=== PATIENT | male | born 1950 | race Caucasian/White ===

== ENCOUNTER 2017-03-17 17:52 | Inpatient (IN) ==
[2017-03-17] MEDS ORDERED: Acetaminophen 325 MG TABLET PO PRN (20:08)
[2017-03-17] MEDS ORDERED: Ondansetron 4 MG/2 ML VIAL IVP PRN (20:08)
[2017-03-17] MEDS ORDERED: Naloxone 0.4 MG/ML INJ IVP PRN (20:08)
[2017-03-17] MEDS: Ipratropium/Albuterol Neb 3 ML IH SCH ×2 (21:07→23:22)
--- NOTE | 2017-03-17 21:11 | Internal Med History&Physical ---
Date of Encounter: 03/17/17 Time of Encounter: 20:20 Assessment and Plan (1) Sepsis Current visit: Yes Status: Acute Will admit the pt into Tele He does meet sepsis criteria with elevated WBC, tachycardia and Source of inf as Pneumonia / Bronchitis Will f/u on blood c drawn at [facility] ER check Lactic acid in AM trend on WBC Sent for sputum cx, Strep PNA, Legionella and Resp viral panel started him on empirical abx Rocephin + Azithromycin Duoneb and O2 Qualifiers: Qualified Code(s): A41.9 - Sepsis, unspecified organism (2) Pneumonia Current visit: Yes Status: Acute His symptoms consistent with PNA Unable to find CXr report in ER documents will get CXR here Mostly bacterial PNA started him on ABX Qualifiers: Qualified Code(s): J18.9 - Pneumonia, unspecified organism (3) Asthma exacerbation Current visit: Yes Status: Acute on Steroids Qualifiers: Qualified Code(s): J45.901 - Unspecified asthma with (acute) exacerbation (4) Benzocaine overdose of undetermined intent Current visit: Yes Status: Acute Denied any suicidal ideation Accidental overdose cont close monitoring of resp function was given Narcan in the ER.. now more alert, awake Qualifiers: Qualified Code(s): T41.3X4A - Poisoning by local anesthetics, undetermined, initial encounter (5) NEYDA (acute kidney injury) Current visit: Yes Status: Acute Hypovolemic with sepsis IV hydration d/c Lasix strict I & O Mantilla cath + (6) Acute and chronic respiratory failure with hypoxia Current visit: Yes Status: Acute Due to PNA Seems to be he was on 2 lit at home.. now requiring 4 lit o2 Does have GLORIA and use CPAP at [facility].. will resume (7) HTN (hypertension) Current visit: Yes Status: Acute hold BP meds since BP running low Qualifiers: Hypertension type: essential hypertension Qualified Code(s): I10 - Essential (primary) hypertension (8) Shortness of breath Current visit: Yes Status: Acute Due to asthma exacerbation however concerned for underline CHF too will get CXR get 2 D Echo unable to give Lasix due Sepsis (9) Chronic neck and back pain Current visit: Yes Status: Acute (10) Narcotic dependence Current visit: Yes Status: Acute on Morphine pump - need to change it very soon so need to call pain management in AM (11) Anxiety Current visit: Yes Status: Acute Internal Medicine - H&P: HPI Chief complaint: Shortness of breath / Ativan overdose Admitted From: Emergency Dept Plans for Post Hospital Care: Home History of present illness: Mr. Membreno is a 66 year old male severe back pain on morphine pump for pain management, HTN, Asthma, Chronic hypoxic resp failure and Anxiety who was recentsly started on Ativan 2mg tabs by PCP for Anxiety was taken to ED after he took 5 tabs of ativan for his SOB and Anxiety. Pt stated this morning he felt severe SOB / Nervous aorund 3 AM, then took 1 tabs of Ativan, did not help much, took another 2 tabs with out any relief , so he took 2 more and went to [facility] ED. Apparently pt was somnolent by the time he reached to ED, so he was given Norcan and send to our hospital for further care. Pt is now more alert, awake and O x 3 Denied any CP. still has some SOB and VALLEJO. Pt does c/o cough with greenish and yellowish expectoration. He also happened to have RLL Pneumonia and NEYDA. Past Med Surg Social Fam HX - Past Medical History Medical history: arthritis, asthma, COPD Psychiatric history: no psych history - Past Surgical History Surgical History: appendectomy, colectomy - Social History Smoking Status: Former smoker Alcohol use: none Drug use: none - Family History Mother Name: trevon emerson Age: 68 Cause of : cancer on operating table Hx Family Cancer: Yes (gall bladder) Father Name: rodrigue Age: 74 Living Status: Cause of : lung cancer Hx Family Cardiac Disorders: Yes (RI) Hx Family Respiratory Disorders: Yes (copd, emphysema) Hx Family Cancer: Yes (lung cancer) Internal Medicine - H&P: Meds 3 Allergy/AdvReac Type Severity Reaction Status Date / Time No Known Allergies Allergy Verified 03/17/17 20:20 All Systems PM: A 10-system review of systems was performed and is negative for pertinent findings except as documented above in the HPI. Review of systems: All the systems are reviewed everything is benign except the systems and symptoms I mentioned in the history of present illness - Constitutional Vitals: Temp Pulse Resp BP Pulse Ox 98.3 F 110 27 94/71 92 03/17/17 20:07 03/17/17 20:07 03/17/17 20:07 03/17/17 20:07 03/17/17 20:07 General appearance: Present: mild distress, A&O X 3, answers questions appropriately - Head Head exam: Present: atraumatic, normal inspection - Respiratory Respiratory exam: Present: respiratory distress (mild). Absent: rhonchi - Cardiovascular Cardiovascular exam: Present: RRR, +S1, +S2, tachycardia - GI/Abdominal GI/Abdominal exam: Present: normal bowel sounds, soft. Absent: rebound, rigid, tenderness - Extremities Exam Extremities exam: Absent: calf tenderness, pedal edema, tenderness - Back Exam Back exam: Absent: CVA tenderness (L), CVA tenderness (R) - Neurological Exam Neurological exam: Present: alert, oriented X3, no focal deficits - Psychiatric Psychiatric exam: Present: normal affect, normal mood - Skin Skin exam: Absent: rash
[2017-03-17 21:12] LABS: Hematocrit 51.7 % (37.5-50.1); Hemoglobin 15.7 g/dL (12.9-16.9); Mean Corpuscular HGB Conc 30.4 g/dL (31.6-35.5); Mean Corpuscular Hemoglobin 24.8 pg (28.0-33.3); Mean Corpuscular Volume 81.7 fL (83.0-100.0); Mean Platelet Volume 10.1 fL (9.4-12.4); Platelet Count 251 K/mcL (140-400); Red Blood Count 6.33 M/mcL (4.19-5.50); Red Cell Distribution Width 19.8 % (11.5-14.5)
[2017-03-17 21:13] LABS: Monocytes # 1.2 K/mcL (0.0-1.3)
[2017-03-17 21:31] LABS: Calcium 7.8 mg/dL (8.6-10.8); Lymphocytes # 2.9 K/mcL (0.6-4.6); Neutrophils # 16.3 K/mcL (1.6-8.9); Platelet Estimate Normal (Normal); Potassium 3.8 mEq/L (3.5-4.5)
[2017-03-17] MEDS: MethylPREDNISolone 40 MG/ML VIAL IVP SCH (21:38)
[2017-03-17] MEDS: 0.9 % Sodium Chloride 1,000 ML IVC SCH (21:39)
[2017-03-17] MEDS: Azithromycin 500 MG in D5% in Water 250 ML IVPB SCH (21:39)
[2017-03-17] MEDS: cefTRIAXone 1,000 MG in Water for inj. (sterile) 10 ML IVP SCH (21:40)
[2017-03-18] MEDS: MethylPREDNISolone 40 MG/ML VIAL IVP SCH ×4 (03:44→21:10)
[2017-03-18] MEDS: Ipratropium/Albuterol Neb 3 ML IH SCH ×6 (04:38→23:20)
[2017-03-18 05:09] LABS: Hematocrit 49.3 % (37.5-50.1); Hemoglobin 15.4 g/dL (12.9-16.9); Mean Corpuscular HGB Conc 31.2 g/dL (31.6-35.5); Mean Corpuscular Hemoglobin 25.4 pg (28.0-33.3); Mean Corpuscular Volume 81.2 fL (83.0-100.0); Mean Platelet Volume 9.6 fL (9.4-12.4); Platelet Count 230 K/mcL (140-400); Red Blood Count 6.07 M/mcL (4.19-5.50); Red Cell Distribution Width 20.1 % (11.5-14.5)
[2017-03-18 05:23] LABS: Calcium 7.8 mg/dL (8.6-10.8); Magnesium 1.1 mg/dL (1.6-2.6); Potassium 3.8 mEq/L (3.5-4.5)
[2017-03-18 05:39] LABS: Lymphocytes # 4.4 K/mcL (0.6-4.6); Monocytes # 1.7 K/mcL (0.0-1.3); Neutrophils # 15.7 K/mcL (1.6-8.9)
[2017-03-18 05:40] LABS: Smudge Cells Present (Not Present); Toxic Granulation Present (Not Present)
[2017-03-18 05:41] LABS: Large Platelets Present (Not Present); Platelet Estimate Normal (Normal); Reactive Lymphocytes Present (Not Present)
[2017-03-18] MEDS: *HR* Heparin 5,000 UNIT/ML VIAL SQ SCH ×2 (06:31→17:57)
--- NOTE | 2017-03-18 09:48 | Internal Med Progress Note ---
<Tawnya Quigley - Last Filed: 03/18/17 14:57> Date of Encounter: 03/18/17 Time of Encounter: 09:46 - Assessment and plan (1) Sepsis Current Visit: Yes Status: Acute Assessment and plan: severe sepsis vs septic shock; patient has not yet had a fluid bolus to see if his pressure is fluid responsive -total of 3 L fluid bolus -continue maintenance IVF -Rocephin, Azithromycin, and Vancomycin -Solu-Medrol - Strict I's and O's -Check labs and replace electrolytes as needed -Echocardiogram pending for shortness of breath -Respiratory infection panel pending - blood cultures pending -lactate 3.9 -> 5.6 -bipap prn Qualifiers: Sepsis type: sepsis due to unspecified organism Qualified Code(s): A41.9 - Sepsis, unspecified organism (2) Lactic acidosis Current Visit: Yes Status: Acute (3) Acute and chronic respiratory failure with hypoxia Current Visit: Yes Status: Acute Assessment and plan: Currently satting 94% on 4 L nasal cannula, normally uses 2 L at night with his BiPAP (4) Pneumonia Current Visit: Yes Status: Acute Qualifiers: Pneumonia type: due to unspecified organism Laterality: left Lung location: lower lobe of lung Qualified Code(s): J18.1 - Lobar pneumonia, unspecified organism (5) Asthma exacerbation Current Visit: Yes Status: Acute Qualifiers: Asthma severity: unspecified severity Asthma persistence: unspecified Qualified Code(s): J45.901 - Unspecified asthma with (acute) exacerbation (6) Anxiety Current Visit: Yes Status: Acute (7) Chronic neck and back pain Current Visit: Yes Status: Acute (8) Narcotic dependence Current Visit: Yes Status: Acute Assessment and plan: intrathecal morphine pump from pain management Has missed several visits to have the morphine refilled pain management consulted (9) HTN (hypertension) Current Visit: Yes Status: Acute Assessment and plan: Currently hypotensive due to severe sepsis/septic shock Qualifiers: Hypertension type: essential hypertension Qualified Code(s): I10 - Essential (primary) hypertension - Subjective Interval history: Patient states he is feeling much better this morning. He denies shortness of breath; however, he is currently on 4 L of oxygen via nasal cannula and he normally only uses 2 L at night with his BiPAP machine. - Constitutional Vitals: Temp Pulse Resp BP Pulse Ox 98.5 F 98 16 85/64 94 03/18/17 07:25 03/18/17 07:25 03/18/17 07:45 03/18/17 07:25 03/18/17 07:45 General appearance: Present: mild distress, A&O X 3, answers questions appropriately - Head Head exam: Present: atraumatic, normocephalic - Eye Eye exam: Present: PERRL, conjuntiva pink, sclera anicteric Pupils: Present: PERRL - Neck Neck exam general surgery: Present: supple, trachea midline - Respiratory Respiratory exam: Absent: respiratory distress, rhonchi, wheezes Additional comments: Coarse lung sounds bilateral bases - Cardiovascular Cardiovascular exam: Present: RRR, +S1, +S2. Absent: diastolic murmur, gallop, rubs, systolic murmur - GI/Abdominal GI/Abdominal exam: Present: normal bowel sounds, soft, no peritoneal signs. Absent: distended, tenderness - Extremities Exam Extremities exam: Present: warm. Absent: pedal edema, tenderness Additional comments: posterior tibial pulses palpable and symmetric - Neurological Exam Neurological exam: Present: alert. Absent: facial droop, speech deficit - Skin Skin exam: Present: dry, intact Internal Medicine: Result - Labs CBC & Chem 7: 03/18/17 04:54 03/18/17 04:54 Labs: Short CBC 03/17/17 03/18/17 Range/Units 20:50 04:54 WBC 20.4 H 21.8 H (4.3-11.1) K/mcL Hgb 15.7 15.4 (12.9-16.9) g/dL Hct 51.7 H 49.3 (37.5-50.1) % Plt Count 251 230 (140-400) K/mcL Neutrophils # 16.3 H 15.7 H (1.6-8.9) K/mcL BMP 03/17/17 03/18/17 20:50 04:54 Sodium 137 138 Potassium 3.8 3.8 Chloride 101 103 Carbon Dioxide 21 22 BUN 33 H 37 H Creatinine 2.82 H 2.11 H Glucose 90 117 H Calcium 7.8 L 7.8 L Cardiac Enzymes 03/17/17 Range/Units 20:50 Troponin I 0.01 (0-0.03) ng/mL - Impressions Impressions Chest X-Ray 03/17/17 20:31 IMPRESSION: On this single lordotic view of the chest, there is no definite focal consolidation. The left hemidiaphragm is not distinct, and a repeat evaluation may be considered if there is ongoing concern for disease in the left lower lung. D/ / Chon Yoder / Chon Yoder Interpreting Provider: Chon Yoder Consult Discharge Plan - Plan Referrals: Michael Lopes DO [Primary Care Provider] - 04/10/17 10:45 am (OFFICE WILL CALL PATIENT AT HOME WITH AN EARLIER APPOINTMENT) <Jaun Diego Olvera - Last Filed: 03/18/17 18:19> Date of Encounter: 03/18/17 - Assessment and plan (1) Acute and chronic respiratory failure with hypoxia Current Visit: Yes Status: Acute (2) Sepsis Current Visit: Yes Status: Acute Qualifiers: Sepsis type: sepsis due to unspecified organism Qualified Code(s): A41.9 - Sepsis, unspecified organism (3) HTN (hypertension) Current Visit: Yes Status: Acute Qualifiers: Hypertension type: essential hypertension Qualified Code(s): I10 - Essential (primary) hypertension (4) Pneumonia Current Visit: Yes Status: Suspected Qualifiers: Pneumonia type: due to Pneumococcus Laterality: left Lung location: lower lobe of lung Qualified Code(s): J13 - Pneumonia due to Streptococcus pneumoniae (5) Anxiety Current Visit: Yes Status: Acute (6) Chronic neck and back pain Current Visit: Yes Status: Acute (7) Benzodiazepine (tranquilizer) overdose Current Visit: Yes Status: Acute Qualifiers: Encounter type: initial encounter Injury intent: accidental or unintentional Qualified Code(s): T42.4X1A - Poisoning by benzodiazepines, accidental (unintentional), initial encounter - Constitutional Vitals: Temp Pulse Resp BP Pulse Ox 97.6 F 110 18 103/57 90 03/18/17 15:34 03/18/17 15:34 03/18/17 15:34 03/18/17 15:34 03/18/17 15:34 Internal Medicine: Result - Labs CBC & Chem 7: 03/18/17 04:54 03/18/17 04:54 Labs: Short CBC 03/17/17 03/18/17 Range/Units 20:50 04:54 WBC 20.4 H 21.8 H (4.3-11.1) K/mcL Hgb 15.7 15.4 (12.9-16.9) g/dL Hct 51.7 H 49.3 (37.5-50.1) % Plt Count 251 230 (140-400) K/mcL Neutrophils # 16.3 H 15.7 H (1.6-8.9) K/mcL BMP 03/17/17 03/18/17 20:50 04:54 Sodium 137 138 Potassium 3.8 3.8 Chloride 101 103 Carbon Dioxide 21 22 BUN 33 H 37 H Creatinine 2.82 H 2.11 H Glucose 90 117 H Calcium 7.8 L 7.8 L Cardiac Enzymes 03/17/17 Range/Units 20:50 Troponin I 0.01 (0-0.03) ng/mL - Impressions Impressions Chest X-Ray 03/17/17 20:31 IMPRESSION: On this single lordotic view of the chest, there is no definite focal consolidation. The left hemidiaphragm is not distinct, and a repeat evaluation may be considered if there is ongoing concern for disease in the left lower lung. D/ / Chon Yoder / Chon Yoder Interpreting Provider: Chon Yoder Echocardiogram 03/18/17 20:48 Impressions: LVEF 50-55%. Normal LV chamber size, wall thickness and function. Indeterminate diastolic function. Normal right ventricular structure and function. No significant valvular dysfunction. No evidence of pulmonary hypertension identified. Left Ventricular Wall Motion: Rest Echo Findings All wall segments showed normal motion. Findings: Study Quality * Technically adequate exam. ECG Findings * Normal sinus rhythm. Left Ventricle * LVEF 50-55%. * Normal LV chamber size, wall thickness and function. * Indeterminate diastolic function. Right Ventricle * Normal right ventricular structure and function. Left Atrium * Mildly dilated left atrium. Right Atrium * Normal right atrial size. Interatrial Septum * No evidence of PFO by color Doppler. Aortic Valve * Aortic valve not well visualized. * No aortic regurgitation. * No aortic stenosis. Mitral Valve * Normal mitral valve structure and function. * No mitral regurgitation. * No mitral stenosis. Tricuspid Valve * Normal tricuspid valve structure and function. * Trace tricuspid regurgitation. * No evidence of pulmonary hypertension. Pulmonic Valve * Pulmonic valve not well visualized. Aorta * Normally sized aortic root. Pericardium * The pericardium appears normal. IVC * Normal IVC dimensions and inspiratory collapse. Pulmonary Artery * Normal visualized portions of the main pulmonary artery. - Attending Attestation I examined this patient and my medical decision-making was reviewed with the Resident Physician on 03/18/17. I agree with the documented findings, disposition and treatment plan as described except to the extent set forth below. Mr Membreno is currently admitted with sepsis. Source appears to be lungs. He remains moderate to high risk due to potential for worsening clinical and respiratory status. Mr Membreno was hypotensive this AM but responded to fluid challenge. He had improvement in respiratory status on bipap. His heart rate has decreased. No fever or chills at this time. and son at bedside. Exam Alert. Mild respiratory distress Heart reg and tachy Mucus membranes dry Lungs with rhonchi bilaterally. Abd soft and nontender I/P 1. Sepsis - most likely pulmonary source 2. CHF - acute on chronic diastolic 3. Resp failure Further diagnoses and plan as above.
[2017-03-18] MEDS ORDERED: 0.9 % Sodium Chloride 1,000 ML IVC ONE (09:56)
[2017-03-18 10:35] LABS: VBG Ionized Calcium 0.95 mmol/L (1.15-1.35)
[2017-03-18] MEDS ORDERED: 0.9 % Sodium Chloride 1,000 ML IVC SCH (11:30)
[2017-03-18] MEDS ORDERED: Vancomycin 1,750 MG in D5% in Water 250 ML IVPB SCH (12:00)
[2017-03-18] MEDS ORDERED: Calcium Gluconate 1,000 MG in D5% in Water 100 ML IVPB ONE (13:53)
[2017-03-18] MEDS ORDERED: *HR* OxyCODONE/APAP 10/325 TABLET PO PRN (14:53)
[2017-03-18] MEDS: 0.9 % Sodium Chloride 1,000 ML IVC SCH (15:28)
[2017-03-18] MEDS ORDERED: Potassium Phosphate 44 MEQ in 0.9 % Sodium Chloride 250 ML IVPB PRN (15:34)
[2017-03-18] MEDS: Vancomycin 1,750 MG in D5% in Water 500 ML IVPB SCH (15:34)
[2017-03-18 16:32] LABS: Adenovirus Not Detected (Not Detect); Bordetella Pertussis Not Detected (Not Detect); Chlamydophila pneumoniae Not Detected (Not Detect); Coronavirus 229E Not Detected (Not Detect); Coronavirus HKU1 Not Detected (Not Detect); Coronavirus NL63 Not Detected (Not Detect); Coronavirus OC43 Not Detected (Not Detect); Human Metapneumovirus Not Detected (Not Detect); Human Rhinovirus/Enterovirus Not Detected (Not Detect); Influenza A Subtype 2009 H1 Not Detected (Not Detect); Influenza A Untypeable Not Detected (Not Detect); Influenza B Not Detected (Not Detect); Mycoplasma pneumoniae Not Detected (Not Detect); Parainfluenza Virus 1 Not Detected (Not Detect); Parainfluenza Virus 2 Not Detected (Not Detect); Parainfluenza Virus 3 Not Detected (Not Detect); Parainfluenza Virus 4 Not Detected (Not Detect); Respiratory Syncytial Virus Not Detected (Not Detect)
[2017-03-18] MEDS ORDERED: Furosemide 40 MG/4 ML VIAL IVP ONE (17:00)
[2017-03-18] MEDS: Budesonide/Formoterol 160/4.5 MDI IH SCH (19:46)
[2017-03-18] MEDS: cefTRIAXone 1,000 MG in Water for inj. (sterile) 10 ML IVP SCH (21:10)
[2017-03-18] MEDS: traZODone 50 MG TABLET PO SCH (21:10)
[2017-03-18] MEDS: Azithromycin 500 MG in D5% in Water 250 ML IVPB SCH (21:10)
[2017-03-18 23:01] LABS: VBG HCO3 25 mEq/L (21-27); VBG Ionized Calcium 1.07 mmol/L (1.15-1.35); VBG PCO2 44 mmHg (41-51); VBG PH 7.37 pH Units (7.32-7.42); VBG PO2 127 mmHg (25-50)
[2017-03-19] MEDS: MethylPREDNISolone 40 MG/ML VIAL IVP SCH ×3 (03:04→20:48)
[2017-03-19] MEDS: Ipratropium/Albuterol Neb 3 ML IH SCH ×6 (03:53→22:40)
[2017-03-19] MEDS: 0.9 % Sodium Chloride 1,000 ML IVC SCH ×2 (03:57→13:19)
[2017-03-19 04:42] LABS: Hematocrit 45.5 % (37.5-50.1); Hemoglobin 13.9 g/dL (12.9-16.9); Mean Corpuscular HGB Conc 30.5 g/dL (31.6-35.5); Mean Corpuscular Hemoglobin 24.7 pg (28.0-33.3); Mean Corpuscular Volume 80.8 fL (83.0-100.0); Mean Platelet Volume 10.1 fL (9.4-12.4); Platelet Count 227 K/mcL (140-400); Red Blood Count 5.63 M/mcL (4.19-5.50); Red Cell Distribution Width 19.6 % (11.5-14.5)
[2017-03-19 04:50] LABS: Blood Urea Nitrogen 38 mg/dL (8-26); Calcium 8.5 mg/dL (8.6-10.8); Carbon Dioxide 25 mEq/L (19-29); Chloride 103 mEq/L (98-109); Glucose 136 mg/dL (70-99); Osmolality,Calculated 293 (280-300); Phosphorous 1.8 mg/dL (2.3-4.7); Potassium 3.6 mEq/L (3.5-4.5); Sodium 136 mEq/L (136-145)
[2017-03-19 05:10] LABS: Neutrophils # 12.5 K/mcL (1.6-8.9); Platelet Estimate Normal (Normal)
[2017-03-19 05:13] LABS: BUN/Creatinine Ratio 33 (6-26); Magnesium 2.1 mg/dL (1.6-2.6); eGFR For African Americans > 60 (> 60); eGFR For Non-African Americans > 60 (> 60)
[2017-03-19] MEDS: *HR* Heparin 5,000 UNIT/ML VIAL SQ SCH ×2 (05:50→16:58)
[2017-03-19] MEDS ORDERED: Furosemide 40 MG/4 ML VIAL IVP ONE (06:33)
[2017-03-19] MEDS: FLUoxetine 20 MG CAPSULE PO SCH (07:58)
[2017-03-19] MEDS: Budesonide/Formoterol 160/4.5 MDI IH SCH ×2 (08:28→20:13)
[2017-03-19] MEDS: Tiotropium 18 MCG inhalation IH SCH (08:29)
--- NOTE | 2017-03-19 09:10 | Internal Med Progress Note ---
<Tawnya Quigley - Last Filed: 03/19/17 12:47> Date of Encounter: 03/19/17 Time of Encounter: 09:08 - Assessment and plan (1) Sepsis Current Visit: Yes Status: Acute Assessment and plan: severe sepsis - lactate 3.9 - 5.6 - 2.3 - 1.6 -Rocephin, Azithromycin, and Vancomycin -Solu-Medrol - Strict I's and O's -Electrolyte protocol -bipap prn and at night - Blood cultures pending - Respiratory infection panel negative - Echocardiogram: EF 50-55%. Normal LV chamber size, wall thickness and function. Indeterminate diastolic function. Normal right ventricular structure and function. No significant valvular dysfunction. No evidence of pulmonary hypertension. Qualifiers: Sepsis type: sepsis due to unspecified organism Qualified Code(s): A41.9 - Sepsis, unspecified organism (2) Acute and chronic respiratory failure with hypoxia Current Visit: Yes Status: Acute (3) Pneumonia Current Visit: Yes Status: Suspected Qualifiers: Pneumonia type: due to Pneumococcus Laterality: left Lung location: lower lobe of lung Qualified Code(s): J13 - Pneumonia due to Streptococcus pneumoniae (4) Asthma exacerbation Current Visit: Yes Status: Acute Qualifiers: Asthma severity: unspecified severity Asthma persistence: unspecified Qualified Code(s): J45.901 - Unspecified asthma with (acute) exacerbation (5) Anxiety Current Visit: Yes Status: Acute Assessment and plan: Patient presented to [facility] after taking 5 2 mg Ativan due to anxiety associated with shortness of breath (6) Chronic neck and back pain Current Visit: Yes Status: Acute (7) Narcotic dependence Current Visit: Yes Status: Acute Assessment and plan: intrathecal morphine pump from pain management Has missed several visits to have the morphine refilled pain management consulted (8) HTN (hypertension) Current Visit: Yes Status: Acute Assessment and plan: Blood pressure has been low normal due to severe sepsis Lasix 1 time doses as needed Continue to monitor closely Plan to discontinue maintenance IV fluids at noon today and watch blood pressure (patient is on a diet) Qualifiers: Hypertension type: essential hypertension Qualified Code(s): I10 - Essential (primary) hypertension (9) Lactic acidosis Current Visit: Yes Status: Resolved Assessment and plan: Resolved - Subjective Interval history: Patient states that he feels better. He is sitting up in the chair. - Constitutional Vitals: Temp Pulse Resp BP Pulse Ox 98.1 F 93 18 111/70 96 03/19/17 07:20 03/19/17 07:20 03/19/17 07:20 03/19/17 07:20 03/19/17 07:20 General appearance: Present: A&O X 3, answers questions appropriately - Head Head exam: Present: atraumatic, normocephalic - Eye Eye exam: Present: PERRL, conjuntiva pink, sclera anicteric Pupils: Present: PERRL - Neck Neck exam general surgery: Present: supple, trachea midline. Absent: lymphadenopathy - Respiratory Respiratory exam: Present: CTAB. Absent: accessory muscle use, rales, rhonchi, wheezes - Cardiovascular Cardiovascular exam: Present: RRR, +S1, +S2. Absent: diastolic murmur, gallop, rubs, systolic murmur - GI/Abdominal GI/Abdominal exam: Present: normal bowel sounds, soft, no peritoneal signs. Absent: distended, tenderness - Extremities Exam Extremities exam: Present: tenderness (mild), warm. Absent: pedal edema Additional comments: Dorsalis pedis pulses palpable and symmetric - Neurological Exam Neurological exam: Present: CN II-XII intact, oriented X3, no focal deficits. Absent: pronater drift, facial droop, speech deficit - Skin Skin exam: Present: dry, intact Internal Medicine: Result - Labs CBC & Chem 7: 03/19/17 04:30 03/19/17 04:30 Labs: Short CBC 03/19/17 Range/Units 04:30 WBC 16.5 H (4.3-11.1) K/mcL Hgb 13.9 D (12.9-16.9) g/dL Hct 45.5 (37.5-50.1) % Plt Count 227 (140-400) K/mcL Neutrophils # 12.5 H (1.6-8.9) K/mcL BMP 03/19/17 04:30 Sodium 136 Potassium 3.6 Chloride 103 Carbon Dioxide 25 BUN 38 H Creatinine 1.15 Glucose 136 H Calcium 8.5 L - Impressions Impressions Echocardiogram 03/18/17 20:48 Impressions: LVEF 50-55%. Normal LV chamber size, wall thickness and function. Indeterminate diastolic function. Normal right ventricular structure and function. No significant valvular dysfunction. No evidence of pulmonary hypertension identified. Left Ventricular Wall Motion: Rest Echo Findings All wall segments showed normal motion. Findings: Study Quality * Technically adequate exam. ECG Findings * Normal sinus rhythm. Left Ventricle * LVEF 50-55%. * Normal LV chamber size, wall thickness and function. * Indeterminate diastolic function. Right Ventricle * Normal right ventricular structure and function. Left Atrium * Mildly dilated left atrium. Right Atrium * Normal right atrial size. Interatrial Septum * No evidence of PFO by color Doppler. Aortic Valve * Aortic valve not well visualized. * No aortic regurgitation. * No aortic stenosis. Mitral Valve * Normal mitral valve structure and function. * No mitral regurgitation. * No mitral stenosis. Tricuspid Valve * Normal tricuspid valve structure and function. * Trace tricuspid regurgitation. * No evidence of pulmonary hypertension. Pulmonic Valve * Pulmonic valve not well visualized. Aorta * Normally sized aortic root. Pericardium * The pericardium appears normal. IVC * Normal IVC dimensions and inspiratory collapse. Pulmonary Artery * Normal visualized portions of the main pulmonary artery. Consult Discharge Plan - Plan Referrals: Michael Lopes DO [Primary Care Provider] - 04/10/17 10:45 am (OFFICE WILL CALL PATIENT AT HOME WITH AN EARLIER APPOINTMENT) <Greg Drake - Last Filed: 03/19/17 17:04> Date of Encounter: 03/19/17 - Constitutional Vitals: Temp Pulse Resp BP Pulse Ox 97.8 F 88 20 134/76 97 03/19/17 15:21 03/19/17 15:21 03/19/17 15:21 03/19/17 15:21 03/19/17 15:21 Internal Medicine: Result - Labs CBC & Chem 7: 03/19/17 04:30 03/19/17 11:19 Labs: Short CBC 03/19/17 Range/Units 04:30 WBC 16.5 H (4.3-11.1) K/mcL Hgb 13.9 D (12.9-16.9) g/dL Hct 45.5 (37.5-50.1) % Plt Count 227 (140-400) K/mcL Neutrophils # 12.5 H (1.6-8.9) K/mcL BMP 03/19/17 03/19/17 04:30 11:19 Sodium 136 136 Potassium 3.6 3.6 Chloride 103 104 Carbon Dioxide 25 24 BUN 38 H 36 H Creatinine 1.15 1.12 Glucose 136 H 176 H Calcium 8.5 L 8.0 L Liver Function 03/19/ Range/Units 11:19 Total Bilirubin 0.3 (0.3-1.0) mg/dL AST 16 (13-39) Units/L ALT 10 (7-52) Units/L Alkaline Phosphatase 35 (34-104) Units/L Albumin 2.9 L (3.5-5.7) g/dL - Attending Attestation I conducted a face to face diagnostic evaluation of this patient and my medical decision-making was reviewed with the Resident Physician, Dr Tawnya Quigley. I agree with the documented findings, disposition and treatment plan as described except to the extent set forth below: Continue ceftriaxone and azithromycin and vancomycin for pneumonia and severe sepsis. Blood cultures are negative to date. Patient feels improved. Stop IV fluids. Hold Lasix due to acute kidney injury. Avoid nephrotoxins. Check kidney function tomorrow. All listed medical problems are new to me today. Greg Drake MD
[2017-03-19 11:34] LABS: VBG Ionized Calcium 1.06 mmol/L (1.15-1.35)
[2017-03-19] MEDS ORDERED: Aminoglycoside Consult 1 EACH MC ONE (11:44)
[2017-03-19 12:46] LABS: Phosphorous 1.6 mg/dL (2.7-4.5)
[2017-03-19] MEDS: Vancomycin 1,750 MG in D5% in Water 500 ML IVPB SCH (13:19)
[2017-03-19 14:36] LABS: Alanine Aminotransferase 10 Units/L (7-52); Albumin 2.9 g/dL (3.5-5.7); Alkaline Phosphatase 35 Units/L (34-104); Aspartate Amino Transferase 16 Units/L (13-39); BUN/Creatinine Ratio 32 (6-26); Bilirubin,Total 0.3 mg/dL (0.3-1.0); Blood Urea Nitrogen 36 mg/dL (8-23); Carbon Dioxide 24 mEq/L (23-29); Chloride 104 mEq/L (98-107); Globulin 2.9 g/dL (2.4-3.5); Glucose 176 mg/dL (70-105); Osmolality,Calculated 295 (280-300); Potassium 3.6 mEq/L (3.5-5.1); Sodium 136 mEq/L (136-145); Total Protein 5.8 g/dL (6.4-8.9); eGFR For African Americans > 60 (> 60); eGFR For Non-African Americans > 60 (> 60)
[2017-03-19] MEDS: traZODone 50 MG TABLET PO SCH (20:47)
[2017-03-19] MEDS: cefTRIAXone 1,000 MG in Water for inj. (sterile) 10 ML IVP SCH (20:48)
[2017-03-19] MEDS: Azithromycin 500 MG in D5% in Water 250 ML IVPB SCH (20:48)
[2017-03-19 21:24] LABS: VBG HCO3 23 mEq/L (21-27); VBG Ionized Calcium 1.06 mmol/L (1.15-1.35); VBG PCO2 33 mmHg (41-51); VBG PH 7.45 pH Units (7.32-7.42); VBG PO2 113 mmHg (25-50)
[2017-03-20] MEDS: Ipratropium/Albuterol Neb 3 ML IH SCH ×3 (03:49→11:00)
[2017-03-20 05:16] LABS: Basophils % 0.1 %; Hemoglobin 13.7 g/dL (12.9-16.9); Immature Granulocytes % 0.7 % (0-4); Lymphocytes # 1.1 K/mcL (0.6-4.6); Lymphocytes % 8.6 %; Mean Corpuscular HGB Conc 31.1 g/dL (31.6-35.5); Mean Corpuscular Hemoglobin 25.4 pg (28.0-33.3); Mean Corpuscular Volume 81.5 fL (83.0-100.0); Monocytes # 0.5 K/mcL (0.0-1.3); Monocytes % 3.6 %; Neutrophils # 11.3 K/mcL (1.6-8.9); Platelet Count 218 K/mcL (140-400); Red Cell Distribution Width 19.6 % (11.5-14.5)
[2017-03-20 05:25] LABS: VBG Ionized Calcium 1.09 mmol/L (1.15-1.35); VBG PH 7.42 pH Units (7.32-7.42)
[2017-03-20] MEDS: *HR* Heparin 5,000 UNIT/ML VIAL SQ SCH (05:43)
[2017-03-20 05:44] LABS: BUN/Creatinine Ratio 34 (6-26); Blood Urea Nitrogen 34 mg/dL (8-23); Calcium 7.9 mg/dL (8.6-10.3); Carbon Dioxide 25 mEq/L (23-29); Chloride 106 mEq/L (98-107); Glucose 125 mg/dL (70-105); Magnesium 2.3 mg/dL (1.6-2.6); Osmolality,Calculated 293 (280-300); Phosphorous 3.5 mg/dL (2.7-4.5); Potassium 4.5 mEq/L (3.5-5.1); Sodium 137 mEq/L (136-145); eGFR For African Americans > 60 (> 60); eGFR For Non-African Americans > 60 (> 60)
[2017-03-20] MEDS: Budesonide/Formoterol 160/4.5 MDI IH SCH (07:20)
[2017-03-20] MEDS: Tiotropium 18 MCG inhalation IH SCH (07:22)
[2017-03-20 07:23] VITALS: BP 137/82
[2017-03-20] MEDS: MethylPREDNISolone 40 MG/ML VIAL IVP SCH (07:47)
[2017-03-20] MEDS: FLUoxetine 20 MG CAPSULE PO SCH (07:47)
--- NOTE | 2017-03-20 08:35 | Discharge Summary ---
<Gonzalo Cordoba - Last Filed: 03/20/17 11:02> Date of Encounter: 03/20/17 Time of Encounter: 08:31 - Discharge Diagnosis (1) Sepsis Priority: Primary Status: Acute Qualifiers: Sepsis type: sepsis due to unspecified organism Qualified Code(s): A41.9 - Sepsis, unspecified organism (2) Pneumonia Priority: Secondary Status: Suspected Qualifiers: Pneumonia type: due to Pneumococcus Laterality: left Lung location: lower lobe of lung Qualified Code(s): J13 - Pneumonia due to Streptococcus pneumoniae (3) Acute and chronic respiratory failure with hypoxia Priority: Secondary Status: Acute (4) HTN (hypertension) Priority: Secondary Status: Acute Qualifiers: Hypertension type: essential hypertension Qualified Code(s): I10 - Essential (primary) hypertension (5) Anxiety Priority: Secondary Status: Acute (6) Asthma exacerbation Priority: Secondary Status: Acute Qualifiers: Asthma severity: unspecified severity Asthma persistence: unspecified Qualified Code(s): J45.901 - Unspecified asthma with (acute) exacerbation (7) Benzodiazepine (tranquilizer) overdose Priority: Secondary Status: Acute Qualifiers: Encounter type: initial encounter Injury intent: accidental or unintentional Qualified Code(s): T42.4X1A - Poisoning by benzodiazepines, accidental (unintentional), initial encounter - Discharge Medications Prescriptions: Levofloxacin [Levaquin] 750 mg PO DAILY #4 tablet Home Medications: Albuterol Sulfate [Proair Hfa] 2 puff IH Q6H 03/18/17 [History] FLUoxetine HCl [Prozac] 20 mg PO DAILY 03/18/17 [History] Fluticasone/Salmeterol [Advair 500-50 Diskus] 1 puff IH BID 03/18/17 [History] Furosemide [Lasix] 40 mg PO BID 03/18/17 [History] Ipratropium/Albuterol Neb [Duoneb] 3 ml IH Q6HR PRN 03/18/17 [History] LORazepam [Ativan] 2 mg PO DAILY PRN 03/18/17 [History] Montelukast [Singulair] 10 mg PO DAILY 03/18/17 [History] Morphine Sulfate in 0.9 % NaCl [Morphine 50 mg/50 ml-0.9% NaCl] 3.5 mg IT DAILY 03/18/17 [History] Omeprazole [PriLOSEC] 40 mg PO DAILY 03/18/17 [History] Oxycodone HCl/Acetaminophen [Percocet 10-325 mg Tablet] 1 tab PO BID PRN [History] Tamsulosin HCl [Flomax] 0.4 mg PO DAILY 03/18/17 [History] Testosterone Cypionate [Depo-Testosterone] 200 mg IM QWEEK 03/18/17 [History] Tiotropium [Spiriva] 1 puff IH DAILY 03/18/17 [History] hydroCHLOROthiazide [Hydrochlorothiazide] 25 mg PO DAILY 03/18/17 [History] traZODone [TraZODone] 50 mg PO HS 03/18/17 [History] Levofloxacin [Levaquin] 750 mg PO DAILY #4 tablet 03/20/17 [Rx] Allergies/Adverse Reactions: 3 Allergy/AdvReac Type Severity Reaction Status Date / Time No Known Allergies Allergy Verified 03/17/17 20:20 Procedures/tests Complete & Pending: Procedures Performed prior 72 hours Category Date Time Status EV echocardiogram Routine Y 03/18/17 20:48 Completed Date of admission: 03/17/17 20:08 Primary care physician: Michael Lopes, Consults: 03/17/17 20:13 Consult to Occupational Therapy [CONS] Routine Comment: Evaluate, develop and implement POC Reason for Consult: Deconditioning Consult to Physical Therapy [CONS] Routine Comment: Evaluate, develop and implement POC Reason for Consult: deconditioning 03/17/17 20:31 Consult to Respiratory Therapy [CONS] Stat Reason for Consult: wears bipap at home @ hs Call Completed: No 03/18/17 11:01 Consult to Pain Management [CONS] Routine Consulting Provider: Pain Mgt Interventional Jordan Reason for Consult: intrathecal morphine pump - refill Time Notified: 10:00 Call Completed: Yes Discharging clinician: Gonzalo Cordoba Anticipated date of discharge: 03/20/17 - Patient Status Disposition: Home, Self-Care Condition: Good Functional capacity at discharge: independent ambulation Overall status at discharge: patient is progressing back to baseline - Discharge Instructions Instructions: Levofloxacin (By mouth), Asthma (DC), Acute Kidney Injury (DC), Sepsis (DC) Follow Up With: Michael Lopes DO [Primary Care Provider] - 04/10/17 10:45 am (OFFICE WILL CALL PATIENT AT HOME WITH AN EARLIER APPOINTMENT) Additional Instructions: Please follow up with your PCP as scheduled for hospital follow up. If develop worsening shortness of breath not relieved with your inhaler or chest pain, please return to ED - Diet and Activity Activity: increase activity as tolerated Diet: low fat, low cholesterol Hospital course: Mr. Membreno is a 66 year old male who presented with shortness of breath. Apparently he took 5 tablets of his Ativan due to having anxiety at home. He states that he was short of breath and was also anxious. Vital time he went to [facility] emergency department, he received Narcan due to having a morphine pain pump in place and also flumazenil and woke up and was upset. Chest x-ray showed a right lower lobe pneumonia which was thought to be a source of sepsis as he was tachycardic and had a white count of 20. He was started on vancomycin , Rocephin, Zithromax for broad-spectrum coverage and his blood cultures eventually were negative. Patient normally is on 2 L of oxygen at home however this morning he has been on room air and breathing comfortably and saturating high 90s. Patient lives with his at home and has no further needs as determined by both PT and OT and feels safe to go home today. I reconfirmed to the patient that he is to not take more Ativan than as directed and to use his albuterol inhaler when he becomes short of breath. He will be going home on 4 additional days of Levaquin for his pneumonia. - Time Spent with Patient Total time spent providing and/or coordinating discharge services: - Constitutional Vitals: Temp Pulse Resp BP Pulse Ox 98 F 67 18 137/82 98 03/20/17 00:25 03/20/17 07:20 03/20/17 07:20 03/20/17 07:20 03/20/17 07:20 General appearance: Present: A&O X 3, answers questions appropriately - Head Head exam: Present: atraumatic, normocephalic - Eye Eye exam: Present: PERRL, conjuntiva pink, sclera anicteric - Neck Neck exam general surgery: Present: supple, trachea midline. Absent: lymphadenopathy - Respiratory Respiratory exam: Present: CTAB. Absent: accessory muscle use, rales, rhonchi, wheezes - Cardiovascular Cardiovascular exam: Present: RRR, +S1, +S2. Absent: diastolic murmur, gallop, rubs, systolic murmur - GI/Abdominal GI/Abdominal exam: Present: normal bowel sounds, soft, no peritoneal signs. Absent: distended, tenderness - Extremities Exam Extremities exam: Present: pedal edema (trace), warm, radial pulses palpable and symmetrical. Absent: calf tenderness, cyanotic - Neurological Exam Neurological exam: Present: alert, no focal deficits. Absent: facial droop, speech deficit - Skin Skin exam: Present: dry, intact <Ducu,Greg - Last Filed: 03/20/17 18:07> Date of Encounter: 03/20/17 Procedures/tests Complete & Pending: Procedures Performed prior 72 hours Category Date Time Status EV echocardiogram Routine Y 03/18/17 20:48 Completed Date of admission: 03/17/17 20:08 Primary care physician: Michael Lopes, Consults: 03/17/17 20:13 Consult to Occupational Therapy [CONS] Routine Comment: Evaluate, develop and implement POC Reason for Consult: Deconditioning Consult to Physical Therapy [CONS] Routine Comment: Evaluate, develop and implement POC Reason for Consult: deconditioning 03/17/17 20:31 Consult to Respiratory Therapy [CONS] Stat Reason for Consult: wears bipap at home @ hs Call Completed: No 03/18/17 11:01 Consult to Pain Management [CONS] Routine Consulting Provider: Pain Mgt Interventional Elza Reason for Consult: intrathecal morphine pump - refill Time Notified: 10:00 Call Completed: Yes Hospital course: Mr. Membreno is a 66 year old male - Time Spent with Patient Total time spent providing and/or coordinating discharge services: - Constitutional Vitals: Temp Pulse Resp BP Pulse Ox 98 F 85 16 137/82 93 03/20/17 00:25 03/20/17 08:03 03/20/17 11:00 03/20/17 11:00 03/20/17 11:00 - Attending Attestation I conducted a face to face diagnostic evaluation of this patient and my medical decision-making was reviewed with the Resident Physician, Dr Gonzalo Cordoba. I agree with the documented findings, disposition and treatment plan as described except to the extent set forth below: On exam he is in no acute distress heart is regular. Lungs are clear. Abdomen is obese and soft, nontender. Plan: We will discharge home with oral antibiotics. Greg Drake MD
== END 2017-03-20 11:45 | disposition home or self-care (01) | DRG 871 ==
LOC: 2NNU → SUATTDRO 20:08
PROVIDERS: ADMIT Internal Medicine Cardiovascular Disease; ATTEND Internal Medicine

== ENCOUNTER 2020-05-03 00:53 | Inpatient (IN) ==
[2020-05-03] MEDS ORDERED: Ondansetron 4 MG/2 ML VIAL IVP PRN (13:30)
[2020-05-03] MEDS ORDERED: Acetaminophen 325 MG TABLET PO PRN (13:30)
[2020-05-03] MEDS ORDERED: Naloxone 0.4 MG/ML INJ IVP PRN (13:30)
[2020-05-03 15:17] LABS: Basophils % 0.1 %; Hemoglobin 17.8 g/dL (12.9-16.9); Immature Granulocytes % 1.3 % (0-4); Lymphocytes # 1.3 K/mcL (0.6-4.6); Lymphocytes % 17.6 %; Mean Corpuscular HGB Conc 31.8 g/dL (31.6-35.5); Mean Corpuscular Volume 97.4 fL (83.0-100.0); Mean Platelet Volume 9.7 fL (9.4-12.4); Monocytes # 0.6 K/mcL (0.0-1.3); Monocytes % 8.4 %; Neutrophils # 5.4 K/mcL (1.6-8.9); Platelet Count 220 K/mcL (140-400); Red Blood Count 5.75 M/mcL (4.19-5.50); Red Cell Distribution Width 15.2 % (11.5-14.5); Segmented Neutrophils % 72.6 %; White Blood Count 7.5 K/mcL (4.3-11.1)
[2020-05-03 15:54] LABS: Alanine Aminotransferase 52 Units/L (7-52); Albumin 3.6 g/dL (3.5-5.7); Albumin/Globulin Ratio 1.1 (1.1-2.2); Alkaline Phosphatase 46 Units/L (34-104); Aspartate Amino Transferase 34 Units/L (13-39); BUN/Creatinine Ratio 24 (6-26); Bilirubin,Direct 0.2 mg/dL (0.0-0.2); Bilirubin,Indirect 0.4 mg/dL (0.0-1.0); Bilirubin,Total 0.6 mg/dL (0.3-1.0); Blood Urea Nitrogen 23 mg/dL (8-23); Calcium 8.6 mg/dL (8.6-10.3); Carbon Dioxide 29 mEq/L (23-29); Chloride 99 mEq/L (98-107); Globulin 3.3 g/dL (2.4-3.5); Glucose 81 mg/dL (70-105); Magnesium 1.9 mg/dL (1.6-2.6); Osmolality,Calculated 285 (280-300); Phosphorous 2.6 mg/dL (2.7-4.5); Potassium 3.7 mEq/L (3.5-5.1); Sodium 136 mEq/L (136-145); Total Protein 6.9 g/dL (6.4-8.9); Troponin I < 0.03 ng/mL (< 0.04); eGFR For African Americans > 60 (> 60); eGFR For Non-African Americans > 60 (> 60)
[2020-05-03] MEDS ORDERED: Remdesivir 200 MG in 0.9 % Sodium Chloride 100 ML IVPB ONE (18:00)
[2020-05-03] MEDS ORDERED: *HR* LORazepam 1 MG TABLET PO PRN (18:26)
[2020-05-03 18:46] LABS: Fibrinogen 582 mg/dL (169-393)
[2020-05-03 18:48] LABS: D-Dimer 1073 ng/mLFEU (0-500)
[2020-05-03] MEDS: *HR* OxyCODONE/APAP 10/325 TABLET PO PRN (19:02)
[2020-05-03] MEDS: Ipratropium 1 PUFF INHALER IH SCH ×2 (20:37→23:55)
[2020-05-03] MEDS: traZODone 50 MG TABLET PO SCH (20:59)
[2020-05-03] MEDS: Loratadine 10 MG TABLET PO SCH (20:59)
[2020-05-03] MEDS: Furosemide 40 MG/4 ML VIAL IVP SCH (20:59)
[2020-05-04 02:52] LABS: Basophils % 0.3 %; Eosinophils % 0.1 %; Hemoglobin 18.1 g/dL (12.9-16.9); Immature Granulocytes % 0.7 % (0-4); Lymphocytes # 1.5 K/mcL (0.6-4.6); Lymphocytes % 22.4 %; Mean Corpuscular HGB Conc 32.1 g/dL (31.6-35.5); Mean Corpuscular Hemoglobin 30.5 pg (28.0-33.3); Mean Corpuscular Volume 94.9 fL (83.0-100.0); Mean Platelet Volume 9.6 fL (9.4-12.4); Monocytes # 0.5 K/mcL (0.0-1.3); Monocytes % 7.1 %; Neutrophils # 4.7 K/mcL (1.6-8.9); Platelet Count 198 K/mcL (140-400); Red Blood Count 5.93 M/mcL (4.19-5.50); Segmented Neutrophils % 69.4 %; White Blood Count 6.8 K/mcL (4.3-11.1)
[2020-05-04 03:05] LABS: Hematocrit 56.3 % (37.5-50.1)
[2020-05-04 03:11] LABS: Alanine Aminotransferase 47 Units/L (7-52); Albumin 3.5 g/dL (3.5-5.7); Albumin/Globulin Ratio 1.1 (1.1-2.2); Alkaline Phosphatase 45 Units/L (34-104); Aspartate Amino Transferase 37 Units/L (13-39); BUN/Creatinine Ratio 23 (6-26); Bilirubin,Direct 0.2 mg/dL (0.0-0.2); Bilirubin,Indirect 0.4 mg/dL (0.0-1.0); Bilirubin,Total 0.6 mg/dL (0.3-1.0); Blood Urea Nitrogen 23 mg/dL (8-23); Calcium 8.4 mg/dL (8.6-10.3); Carbon Dioxide 29 mEq/L (23-29); Chloride 98 mEq/L (98-107); Globulin 3.3 g/dL (2.4-3.5); Glucose 83 mg/dL (70-105); Magnesium 1.9 mg/dL (1.6-2.6); Osmolality,Calculated 285 (280-300); Potassium 3.4 mEq/L (3.5-5.1); Sodium 136 mEq/L (136-145); Total Protein 6.8 g/dL (6.4-8.9); eGFR For African Americans > 60 (> 60); eGFR For Non-African Americans > 60 (> 60)
[2020-05-04] MEDS: *HR* OxyCODONE/APAP 10/325 TABLET PO PRN ×3 (03:16→18:07)
[2020-05-04] MEDS: Ipratropium 1 PUFF INHALER IH SCH ×6 (04:04→22:58)
[2020-05-04 05:36] LABS: Fibrinogen 582 mg/dL (169-393)
[2020-05-04 05:37] LABS: D-Dimer 2476 ng/mLFEU (0-500)
[2020-05-04] MEDS ORDERED: *HR* Enoxaparin 40 MG/0.4 ML SYRINGE SQ SCH (07:00)
[2020-05-04] MEDS: Furosemide 40 MG/4 ML VIAL IVP SCH ×2 (08:18→19:58)
[2020-05-04] MEDS: FLUoxetine 20 MG CAPSULE PO SCH (08:18)
[2020-05-04] MEDS ORDERED: Potassium Chloride Elixir 20 MEQ/15 ML UDC PO ONE (09:14)
[2020-05-04] MEDS ORDERED: Isovue-370 500 ML BOTTLE IVP ONE (09:15)
[2020-05-04] MEDS ORDERED: *HR* LORazepam 1 MG TABLET PO PRN (10:55)
[2020-05-04] MEDS: cefTRIAXone 1,000 MG in Water for inj. (sterile) 10 ML IVP SCH (14:54)
[2020-05-04] MEDS: Azithromycin 500 MG in 0.9 % Sodium Chloride 250 ML IVPB SCH (14:54)
[2020-05-04] MEDS: Remdesivir 100 MG in 0.9 % Sodium Chloride 100 ML IVPB SCH (18:08)
[2020-05-04] MEDS: *HR* Enoxaparin 40 MG/0.4 ML SYRINGE SQ SCH (19:58)
[2020-05-04] MEDS: traZODone 50 MG TABLET PO SCH (19:59)
[2020-05-04] MEDS: Loratadine 10 MG TABLET PO SCH (20:00)
[2020-05-05 03:54] LABS: Basophils % 0.5 %; Neutrophils # 2.6 K/mcL (1.6-8.9); Platelet Count 177 K/mcL (140-400); Segmented Neutrophils % 64.1 %
[2020-05-05 03:56] LABS: Eosinophils # 0.1 K/mcL (0.0-0.6); Eosinophils % 1.5 %; Hemoglobin 17.4 g/dL (12.9-16.9); Immature Platelets 5.4 % (1.1-6.1); Lymphocytes # 0.8 K/mcL (0.6-4.6); Lymphocytes % 20.8 %; Mean Corpuscular HGB Conc 31.5 g/dL (31.6-35.5); Mean Corpuscular Hemoglobin 30.1 pg (28.0-33.3); Mean Corpuscular Volume 95.7 fL (83.0-100.0); Mean Platelet Volume 10.5 fL (9.4-12.4); Monocytes # 0.5 K/mcL (0.0-1.3); Monocytes % 12.1 %; Red Blood Count 5.78 M/mcL (4.19-5.50); Red Cell Distribution Width 15.2 % (11.5-14.5)
[2020-05-05 04:04] LABS: Hematocrit 55.3 % (37.5-50.1)
[2020-05-05] MEDS: Ipratropium 1 PUFF INHALER IH SCH ×6 (04:14→23:25)
[2020-05-05 04:22] LABS: Alanine Aminotransferase 36 Units/L (7-52); Albumin 3.4 g/dL (3.5-5.7); Alkaline Phosphatase 39 Units/L (34-104); Aspartate Amino Transferase 36 Units/L (13-39); BUN/Creatinine Ratio 31 (6-26); Bilirubin,Direct 0.1 mg/dL (0.0-0.2); Bilirubin,Indirect 0.5 mg/dL (0.0-1.0); Bilirubin,Total 0.6 mg/dL (0.3-1.0); Blood Urea Nitrogen 24 mg/dL (8-23); Calcium 7.9 mg/dL (8.6-10.3); Carbon Dioxide 19 mEq/L (23-29); Chloride 99 mEq/L (98-107); Globulin 3.3 g/dL (2.4-3.5); Glucose 98 mg/dL (70-105); Magnesium 2.1 mg/dL (1.6-2.6); Osmolality,Calculated 282 (280-300); Potassium 3.8 mEq/L (3.5-5.1); Sodium 134 mEq/L (136-145); Total Protein 6.7 g/dL (6.4-8.9); eGFR For African Americans > 60 (> 60); eGFR For Non-African Americans > 60 (> 60)
[2020-05-05] MEDS: *HR* OxyCODONE/APAP 10/325 TABLET PO PRN (06:43)
[2020-05-05] MEDS: FLUoxetine 20 MG CAPSULE PO SCH (08:38)
[2020-05-05] MEDS: Furosemide 40 MG/4 ML VIAL IVP SCH ×2 (08:38→19:49)
[2020-05-05] MEDS: Famotidine 20 MG TABLET PO SCH (08:38)
[2020-05-05] MEDS: *HR* Enoxaparin 40 MG/0.4 ML SYRINGE SQ SCH ×2 (08:38→19:46)
[2020-05-05] MEDS: cefTRIAXone 1,000 MG in Water for inj. (sterile) 10 ML IVP SCH (08:39)
[2020-05-05] MEDS: Azithromycin 500 MG in 0.9 % Sodium Chloride 250 ML IVPB SCH (12:48)
[2020-05-05] MEDS: Remdesivir 100 MG in 0.9 % Sodium Chloride 100 ML IVPB SCH (17:05)
[2020-05-05] MEDS: traZODone 50 MG TABLET PO SCH (19:45)
[2020-05-05] MEDS: Loratadine 10 MG TABLET PO SCH (19:46)
[2020-05-06] MEDS: Ipratropium 1 PUFF INHALER IH SCH ×6 (03:10→23:47)
[2020-05-06 06:59] LABS: Hemoglobin 17.9 g/dL (12.9-16.9); Mean Corpuscular HGB Conc 31.7 g/dL (31.6-35.5); Mean Corpuscular Hemoglobin 30.5 pg (28.0-33.3); Mean Corpuscular Volume 96.2 fL (83.0-100.0); Mean Platelet Volume 10.1 fL (9.4-12.4); Platelet Count 250 K/mcL (140-400); Red Blood Count 5.86 M/mcL (4.19-5.50); Red Cell Distribution Width 14.9 % (11.5-14.5)
[2020-05-06 07:03] LABS: Hematocrit 56.4 % (37.5-50.1); White Blood Count 6.6 K/mcL (4.3-11.1)
[2020-05-06 07:22] LABS: Albumin 3.5 g/dL (3.5-5.7); BUN/Creatinine Ratio 28 (6-26); Bilirubin,Direct 0.1 mg/dL (0.0-0.2); Bilirubin,Indirect 0.4 mg/dL (0.0-1.0); Bilirubin,Total 0.5 mg/dL (0.3-1.0); Blood Urea Nitrogen 23 mg/dL (8-23); Calcium 8.6 mg/dL (8.6-10.3); Carbon Dioxide 34 mEq/L (23-29); Chloride 96 mEq/L (98-107); Globulin 3.4 g/dL (2.4-3.5); Glucose 88 mg/dL (70-105); Osmolality,Calculated 289 (280-300); Potassium 4.1 mEq/L (3.5-5.1); Sodium 138 mEq/L (136-145); Total Protein 6.9 g/dL (6.4-8.9); eGFR For African Americans > 60 (> 60); eGFR For Non-African Americans > 60 (> 60)
[2020-05-06] MEDS: Furosemide 20 MG TABLET PO SCH ×2 (08:00→17:24)
[2020-05-06] MEDS: Famotidine 20 MG TABLET PO SCH (08:00)
[2020-05-06] MEDS: FLUoxetine 20 MG CAPSULE PO SCH (08:00)
[2020-05-06] MEDS: *HR* Enoxaparin 40 MG/0.4 ML SYRINGE SQ SCH ×2 (08:01→20:13)
[2020-05-06] MEDS: cefTRIAXone 1,000 MG in Water for inj. (sterile) 10 ML IVP SCH (08:01)
[2020-05-06] MEDS: Azithromycin 500 MG in 0.9 % Sodium Chloride 250 ML IVPB SCH (14:21)
[2020-05-06] MEDS: Remdesivir 100 MG in 0.9 % Sodium Chloride 100 ML IVPB SCH (17:25)
[2020-05-06] MEDS: Loratadine 10 MG TABLET PO SCH (20:12)
[2020-05-06] MEDS: traZODone 50 MG TABLET PO SCH (20:16)
[2020-05-07 02:49] LABS: Hematocrit 52.3 % (37.5-50.1); Hemoglobin 16.6 g/dL (12.9-16.9); Mean Corpuscular HGB Conc 31.7 g/dL (31.6-35.5); Mean Corpuscular Hemoglobin 30.6 pg (28.0-33.3); Mean Corpuscular Volume 96.3 fL (83.0-100.0); Mean Platelet Volume 10.2 fL (9.4-12.4); Platelet Count 223 K/mcL (140-400); Red Blood Count 5.43 M/mcL (4.19-5.50); Red Cell Distribution Width 14.7 % (11.5-14.5); White Blood Count 6.7 K/mcL (4.3-11.1)
[2020-05-07 03:09] LABS: Albumin 3.2 g/dL (3.5-5.7); Albumin/Globulin Ratio 1.1 (1.1-2.2); Bilirubin,Direct 0.1 mg/dL (0.0-0.2); Bilirubin,Indirect 0.3 mg/dL (0.0-1.0); Bilirubin,Total 0.4 mg/dL (0.3-1.0); Total Protein 6.2 g/dL (6.4-8.9)
[2020-05-07 03:10] LABS: BUN/Creatinine Ratio 26 (6-26); Blood Urea Nitrogen 22 mg/dL (8-23); Calcium 8.4 mg/dL (8.6-10.3); Carbon Dioxide 33 mEq/L (23-29); Chloride 98 mEq/L (98-107); Glucose 109 mg/dL (70-105); Magnesium 2.3 mg/dL (1.6-2.6); Osmolality,Calculated 286 (280-300); Sodium 136 mEq/L (136-145); eGFR For African Americans > 60 (> 60); eGFR For Non-African Americans > 60 (> 60)
[2020-05-07] MEDS: Ipratropium 1 PUFF INHALER IH SCH ×6 (03:47→23:54)
[2020-05-07] MEDS: Furosemide 20 MG TABLET PO SCH ×2 (08:40→17:41)
[2020-05-07] MEDS: FLUoxetine 20 MG CAPSULE PO SCH (08:40)
[2020-05-07] MEDS: Famotidine 20 MG TABLET PO SCH (08:40)
[2020-05-07] MEDS: *HR* Enoxaparin 40 MG/0.4 ML SYRINGE SQ SCH ×2 (08:41→19:53)
[2020-05-07] MEDS: cefTRIAXone 1,000 MG in Water for inj. (sterile) 10 ML IVP SCH (08:42)
[2020-05-07] MEDS: Azithromycin 500 MG in 0.9 % Sodium Chloride 250 ML IVPB SCH (13:01)
[2020-05-07] MEDS: Remdesivir 100 MG in 0.9 % Sodium Chloride 100 ML IVPB SCH (17:41)
[2020-05-07] MEDS: Loratadine 10 MG TABLET PO SCH (19:52)
[2020-05-07] MEDS: traZODone 50 MG TABLET PO SCH (19:53)
[2020-05-08] MEDS: Ipratropium 1 PUFF INHALER IH SCH ×6 (03:39→23:44)
[2020-05-08 07:43] LABS: Albumin 3.1 g/dL (3.5-5.7); Albumin/Globulin Ratio 1.1 (1.1-2.2); Bilirubin,Direct 0.2 mg/dL (0.0-0.2); Bilirubin,Indirect 0.3 mg/dL (0.0-1.0); Bilirubin,Total 0.5 mg/dL (0.3-1.0); Globulin 2.9 g/dL (2.4-3.5)
[2020-05-08] MEDS: Furosemide 20 MG TABLET PO SCH ×2 (07:45→16:46)
[2020-05-08] MEDS: FLUoxetine 20 MG CAPSULE PO SCH (07:45)
[2020-05-08] MEDS: cefTRIAXone 1,000 MG in Water for inj. (sterile) 10 ML IVP SCH (07:46)
[2020-05-08] MEDS: Famotidine 20 MG TABLET PO SCH (07:46)
[2020-05-08] MEDS: *HR* Enoxaparin 40 MG/0.4 ML SYRINGE SQ SCH ×2 (07:48→19:58)
[2020-05-08] MEDS: traZODone 50 MG TABLET PO SCH (19:58)
[2020-05-08] MEDS: Loratadine 10 MG TABLET PO SCH (19:58)
[2020-05-09 01:54] LABS: Hematocrit 52.2 % (37.5-50.1); Hemoglobin 16.4 g/dL (12.9-16.9); Mean Corpuscular HGB Conc 31.4 g/dL (31.6-35.5); Mean Corpuscular Hemoglobin 30.5 pg (28.0-33.3); Mean Corpuscular Volume 97.2 fL (83.0-100.0); Mean Platelet Volume 10.3 fL (9.4-12.4); Platelet Count 241 K/mcL (140-400); Red Blood Count 5.37 M/mcL (4.19-5.50); Red Cell Distribution Width 14.7 % (11.5-14.5); White Blood Count 8.3 K/mcL (4.3-11.1)
[2020-05-09 02:06] LABS: BUN/Creatinine Ratio 23 (6-26); Blood Urea Nitrogen 20 mg/dL (8-23); Calcium 8.6 mg/dL (8.6-10.3); Carbon Dioxide 28 mEq/L (23-29); Chloride 98 mEq/L (98-107); Glucose 115 mg/dL (70-105); Osmolality,Calculated 282 (280-300); Sodium 134 mEq/L (136-145); eGFR For African Americans > 60 (> 60); eGFR For Non-African Americans > 60 (> 60)
[2020-05-09] MEDS: Ipratropium 1 PUFF INHALER IH SCH ×6 (04:04→23:31)
[2020-05-09] MEDS: Furosemide 20 MG TABLET PO SCH ×2 (09:44→16:54)
[2020-05-09] MEDS: Famotidine 20 MG TABLET PO SCH (09:44)
[2020-05-09] MEDS: FLUoxetine 20 MG CAPSULE PO SCH (09:44)
[2020-05-09] MEDS: *HR* Enoxaparin 40 MG/0.4 ML SYRINGE SQ SCH ×2 (09:45→20:30)
[2020-05-09] MEDS: traZODone 50 MG TABLET PO SCH (20:30)
[2020-05-09] MEDS: Loratadine 10 MG TABLET PO SCH (20:33)
[2020-05-09] MEDS: *HR* OxyCODONE/APAP 10/325 TABLET PO PRN (20:45)
[2020-05-10] MEDS: Ipratropium 1 PUFF INHALER IH SCH ×6 (03:50→23:51)
[2020-05-10] MEDS: FLUoxetine 20 MG CAPSULE PO SCH (09:44)
[2020-05-10] MEDS: Furosemide 20 MG TABLET PO SCH ×2 (09:44→16:54)
[2020-05-10] MEDS: *HR* Enoxaparin 40 MG/0.4 ML SYRINGE SQ SCH ×2 (09:45→21:11)
[2020-05-10] MEDS: Famotidine 20 MG TABLET PO SCH (09:45)
[2020-05-10] MEDS: traZODone 50 MG TABLET PO SCH (21:11)
[2020-05-10] MEDS: Loratadine 10 MG TABLET PO SCH (21:11)
[2020-05-11 02:19] LABS: Hematocrit 54.7 % (37.5-50.1); Hemoglobin 17.6 g/dL (12.9-16.9); Mean Corpuscular HGB Conc 32.2 g/dL (31.6-35.5); Mean Corpuscular Hemoglobin 30.6 pg (28.0-33.3); Mean Corpuscular Volume 95.1 fL (83.0-100.0); Platelet Count 266 K/mcL (140-400); Red Blood Count 5.75 M/mcL (4.19-5.50); Red Cell Distribution Width 14.6 % (11.5-14.5); White Blood Count 10.5 K/mcL (4.3-11.1)
[2020-05-11 02:43] LABS: BUN/Creatinine Ratio 27 (6-26); Blood Urea Nitrogen 23 mg/dL (8-23); Calcium 8.6 mg/dL (8.6-10.3); Carbon Dioxide 30 mEq/L (23-29); Chloride 98 mEq/L (98-107); Glucose 99 mg/dL (70-105); Osmolality,Calculated 286 (280-300); Potassium 3.9 mEq/L (3.5-5.1); Sodium 136 mEq/L (136-145); eGFR For African Americans > 60 (> 60); eGFR For Non-African Americans > 60 (> 60)
[2020-05-11] MEDS: Ipratropium 1 PUFF INHALER IH SCH ×6 (04:25→23:57)
[2020-05-11] MEDS: Famotidine 20 MG TABLET PO SCH (08:47)
[2020-05-11] MEDS: *HR* Enoxaparin 40 MG/0.4 ML SYRINGE SQ SCH ×2 (08:47→21:37)
[2020-05-11] MEDS: Furosemide 20 MG TABLET PO SCH (08:47)
[2020-05-11] MEDS: FLUoxetine 20 MG CAPSULE PO SCH (08:47)
[2020-05-11] MEDS: Loratadine 10 MG TABLET PO SCH (21:37)
[2020-05-11] MEDS: traZODone 50 MG TABLET PO SCH (21:37)
[2020-05-11] MEDS ORDERED: Artificial Tears SOLN 15 ML BOTTLE BOTH EYES SCH (22:30)
[2020-05-12] MEDS: Ipratropium 1 PUFF INHALER IH SCH ×3 (04:01→11:21)
[2020-05-12 07:30] LABS: Basophils % 0.4 %; Eosinophils # 0.1 K/mcL (0.0-0.6); Eosinophils % 0.6 %; Hemoglobin 17.4 g/dL (12.9-16.9); Immature Granulocytes % 1.4 % (0-4); Lymphocytes # 2.4 K/mcL (0.6-4.6); Mean Corpuscular Hemoglobin 29.7 pg (28.0-33.3); Mean Corpuscular Volume 95.9 fL (83.0-100.0); Monocytes # 1.1 K/mcL (0.0-1.3); Neutrophils # 6.8 K/mcL (1.6-8.9); Platelet Count 289 K/mcL (140-400); Red Blood Count 5.85 M/mcL (4.19-5.50); Red Cell Distribution Width 14.9 % (11.5-14.5); Segmented Neutrophils % 64.6 %; White Blood Count 10.5 K/mcL (4.3-11.1)
[2020-05-12 07:36] LABS: Hematocrit 56.1 % (37.5-50.1)
[2020-05-12 07:50] LABS: BUN/Creatinine Ratio 29 (6-26); Blood Urea Nitrogen 26 mg/dL (8-23); Calcium 8.8 mg/dL (8.6-10.3); Carbon Dioxide 34 mEq/L (23-29); Chloride 97 mEq/L (98-107); Glucose 78 mg/dL (70-105); Osmolality,Calculated 288 (280-300); Sodium 137 mEq/L (136-145); eGFR For African Americans > 60 (> 60); eGFR For Non-African Americans > 60 (> 60)
[2020-05-12] MEDS: FLUoxetine 20 MG CAPSULE PO SCH (07:53)
[2020-05-12] MEDS: Famotidine 20 MG TABLET PO SCH (07:53)
[2020-05-12] MEDS: *HR* Enoxaparin 40 MG/0.4 ML SYRINGE SQ SCH (07:54)
[2020-05-12 08:15] VITALS: BP 149/82
[2020-05-12] MEDS ORDERED: Furosemide 20 MG TABLET PO SCH (09:00)
== END 2020-05-12 15:23 | disposition home or self-care (01) | DRG 177 ==
LOC: 2NENU → SUATTDRO 11:36 → 2NENU 05-07 17:16
PROVIDERS: ADMIT Pharmacist; ATTEND Family Medicine